=== PATIENT | male | born 1970 | race Caucasian/White ===

== ENCOUNTER 2023-07-16 00:33 | Emergency (ER) | payer MEDICAID, OTHER, SELFPAY ==
--- NOTE | ~2023-07-16 | CT_ITS ---
EXAMINATION: CT ABDOMEN AND PELVIS WITHOUT CONTRAST CLINICAL INFORMATION: Bilateral flank pain. COMPARISON: None available. TECHNIQUE: Multidetector volumetric imaging was performed from the superior aspect of the liver through the pubic symphysis. Sagittal and coronal reformatted images were obtained on the technologist's workstation. This CT examination was performed using dose optimization techniques as appropriate, variously including the following: *Automated exposure control *Adjustment of mA and/or kV according to patient size (this includes techniques or standardized protocols for targeted exams where dose is matched to indication/reason for exam; i.e. extremities or head) *Use of iterative reconstruction technique DLP: 513 mGy-cm FINDINGS: LUNG BASES: There is minimal scarring at both lung bases. LIVER, GALLBLADDER, AND BILIARY TREE: There is a 1.5 cm hypodensity lateral right lobe the liver. There is no intrahepatic biliary duct dilatation. The gallbladder is unremarkable with no evidence of radiopaque gallstones, gallbladder wall thickening, or obvious pericholecystic inflammatory changes. PANCREAS: Unremarkable. SPLEEN: Unremarkable. ADRENAL GLANDS: Unremarkable. KIDNEYS AND URETERS: The kidneys are normal in size, shape, and attenuation. There are multiple bilateral renal calculi measuring 1 to 3 mm. There is mild right hydronephrosis and hydroureter extending into the pelvis to the level of a 3 to 3.5 mm distal right ureteric calculus. There is no left hydronephrosis. BLADDER: Unremarkable. GASTROINTESTINAL TRACT: The small and large bowel are unremarkable. The appendix is unremarkable. ABDOMINAL WALL: No significant hernia is appreciated. LYMPH NODES: Normal. VASCULAR: Unremarkable. PELVIC VISCERA: Unremarkable. OSSEOUS STRUCTURES: There is grade 1 anterolisthesis L5 over S1 with bilateral L5 spondylolysis. CT/CT abdomen pelvis wo IV con IMPRESSION: Bilateral renal calculi. Mild right hydronephrosis and hydroureter extending into the pelvis to the level of a 3 to 3.5 mm distal right ureteric calculus. Grade 1 anterolisthesis L5 over S1 with bilateral L5 spondylolysis. Fleischner guidelines were followed.
[2023-07-16 00:45] VITALS: BP 137/80; BP 152/90; PULSE 106; PULSE 50; RESP 18; TEMP 36.4; O2SAT 97; O2SAT 98; BMI 27.5
--- NOTE | 2023-07-16 01:01 | ED_ITS ---
HPI - Male Genitourinary General Chief complaint: Urogenital-Male Stated complaint: groin/back pain Time Seen by Provider: 07/16/23 00:54 Source: patient Mode of arrival: ambulatory Limitations: no limitations History of Present Illness HPI Narrative: Patient comes to the emergency room complaining of suprapubic pressure radiating towards the scrotum. Patient states that the actually testes or scrotum do not hurt. Patient states that his symptoms started approximately 1 hour prior to arrival with rapid onset. Patient complaining of bilateral lower back pain radiating towards the abdomen and scrotum. Patient states that he has had trouble urinating for the last hour. Denies any previous issues with urination. Patient denies any recent problems with dysuria or hematuria. Related Data Previous Rx's Medication Instructions Recorded ketorolac 10 mg tablet 10 mg PO TID PRN pain #10 tabs 07/16/23 ondansetron HCl 4 mg tablet 4 mg PO Q6H PRN nausea and 07/16/23 vomiting #14 tabs tamsulosin 0.4 mg capsule 0.4 mg PO BEDTIME #14 caps 07/16/23 Allergies Allergy/AdvReac Type Severity Reaction Status Date / Time No Known Allergies Allergy Verified 07/16/23 00:49 Review of Systems 2 Review of Systems: Constitutional : No Weight loss, No Fever, No Chills, No Night Sweats, No Fatigue, No Malaise ENT/Mouth : No Hearing loss, No Ear Pain, No Nasal Congestion, No Sinus Pain, No Hoarseness, No sore throat, No Rhinorrhea, No Swallowing Difficulty Eyes: No Eye Pain, No Swelling, No Redness, No Foreign Body, No Discharge, No Vision Changes Cardiovascular : No Chest Pain, No SOB, No Dyspnea on Exertion, No Orthopnea, No Edema, No Palpitations Respiratory : No Cough, No Sputum, No Wheezing, No Smoke Exposure, No Dyspnea Gastrointestinal : No Nausea, No Vomiting, No Diarrhea, No Constipation, No abdominal Pain, No Hematochezia, No Melena Genitourinary : Patient denies Dysuria, No Urinary Frequency, No Hematuria, No Urinary Incontinence, No Urgency, complaining of bilateral flank pain, patient states it feels a lot of pressure and discomfort to urinate Musculoskeletal : No joint pain, No Myalgias, No Joint Swelling Skin : No Skin Lesions, No rash Neuro : No Weakness, No Numbness, No Paresthesias, No Loss of Consciousness, No Dizziness, No Headache Psych : No Anxiety/Panic, No Depression, No SI/HI/AH/VH, No Social Issues, Heme/Lymph: No Bruising, No Bleeding,No Lymphadenopathy Endocrine : No Polyuria, No Polydipsia, No Temperature Intolerance PMF Social History Social History Smoked in Last 30 Days: No Use of substances other than those prescribed or required for medical reasons: Yes Substance Use Type: Marijuana Advance Directives: No Advance Directives Information Provided: Yes Physical Exam 2 Vital Signs: Vital Signs: Last Vital Signs Temp 97.7 F 07/16/23 02:09 Pulse 51 07/16/23 02:09 Resp 16 07/16/23 02:09 BP 111/61 07/16/23 02:09 Pulse Ox 94 07/16/23 02:09 O2 Del Method Room Air 07/16/23 02:09 BMI result Body Mass Index 27.5 Const: Other: Appearance: Alert. Oriented X3. Looks uncomfortable Eyes: Pupils equal, round and reactive to light. ENT: Pharynx normal. Neck: Normal inspection. Neck supple. No lymph nodes noted. No crepitus CVS: Normal heart rate and rhythm. Pulses normal. Normal S1 and S2 Respiratory: No respiratory distress. Breath sounds normal. No Wheezing. No rales Abdomen: Soft and nontender. No rigidity. No distention. : No palpable inguinal hernias, no pain to palpation over bilateral testes, no scrotal swelling or pain or discoloration Skin: Skin warm and dry. Normal skin color. Normal skin turgor. Extremities: No lower extremity edema. No Lacerations. No Rash Neuro: Oriented X 3. No motor deficit. No sensory deficit. Moving all extremities. No slurred speech. CN 2 through 12 grossly intact Psych: calm, cooperative, normal affect Course Course Course Narrative: -labs, bladder scan and CT scan pending -patient did not have any pain whatsoever in the scrotum/testicular area. Patient is radiating from the back to the suprapubic area down to the scrotum -patient getting IM Toradol and p.o. tamsulosin and Zofran Medications Administered Discontinued Medications Generic Name Dose Route Start Last Admin Trade Name Freq PRN Reason Stop Dose Admin Ketorolac Tromethamine 60 mg 07/16/23 01:11 07/16/23 01:52 Ketorolac Tromethamine 60 Mg/2 Ml Vial IM 07/16/23 01:12 60 mg ONCE ONE Administration Ondansetron HCl 4 mg 07/16/23 01:11 07/16/23 01:51 Ondansetron Odt 4 Mg Tab.Rapdis TRANSLINGU 07/16/23 01:12 4 mg ONCE ONE Administration Tamsulosin HCl 0.4 mg 07/16/23 01:11 07/16/23 01:51 Tamsulosin Hcl 0.4 Mg Capsule PO 07/16/23 01:12 0.4 mg ONCE ONE Administration Medical Decision Making Medical Decision Making MDM Narrative: -my interpretation of CT scan of the abdomen pelvis: 3-4 mm stone at the right UVJ -patient received a dose of IM Toradol, p.o. tamsulosin, sublingual Zofran, patient feeling much better - Differential Diagnosis Differential Diagnoses: The differential diagnosis associated with the presentation includes (Renal colic, ureterolithiasis, UTI, pyelonephritis, musculoskeletal pain) Admission/Observation Consideration of admission/observation: Escalation of care including admission/observation considered (Given patient's presentation to the ED, admission was considered) Lab Data MDM Lab Attestation statement: I reviewed the patient's lab results. 07/16/23 01:24 07/16/23 01:24 Labs: Lab Results 07/16/23 Range/Units 01:24 WBC 11.9 H (4.8-10.8) X10*3/uL RBC 4.87 (4.60-5.80) X10*6/uL Hgb 15.2 (14.0-18.0) g/dl Hct 44.7 (42.0-52.0) % MCV 91.8 (80.0-98.0) fL MCH 31.2 (27.0-33.0) pg MCHC 34.0 (31.0-36.0) g/dl RDW 11.6 (11.0-16.0) % Plt Count 168 (160-400) X10*3/uL MPV 11.1 (9.4-12.4) fL Immature Gran % (Auto) 0.3 (0.0-0.4) % Neut % (Auto) 74.1 H (45-73) % Lymph % (Auto) 16.8 L (20-40) % [place] % (Auto) 7.5 (2-11) % Eos % (Auto) 0.8 (0-4) % Baso % (Auto) 0.5 (0-2) % Lymph # (Auto) 2.0 (1.2-4.9) X10*3/uL [place] # (Auto) 0.9 (0.1-1.2) X10*3/uL Eos # (Auto) 0.1 (0.0-0.4) X10*3/uL Baso # (Auto) 0.1 (0.0-0.2) X10*3/uL Abs Immat Gran (auto) 0.03 (0.00-0.03) X10*3/uL Absolute Neuts (auto) 8.8 H (2.0-8.3) x10*3/uL Absolute Nucleated RBC 0.000 (0.0-0.012) X10*3/uL Nucleated RBC % (auto) 0.0 (0.0-0.2) /100WBC Sodium 141 (135-145) mmol/L Potassium 3.7 (3.3-5.1) mmol/L Chloride 104 (96-108) mmol/L Carbon Dioxide 26 (22-29) mmol/L Anion Gap 15 (12-20) BUN 16 (9-16) mg/dL Creatinine 1.68 H (0.5-1.4) mg/dL Estim Creat Clear Calc 49.7 Estimated GFR 43 Random Glucose 141 H (60-115) mg/dL Calcium 9.7 (8.4-10.2) mg/dL Total Bilirubin 0.3 (0.0-1.0) mg/dL Direct Bilirubin 0.1 (0.0-0.5) mg/dL AST 22 (5-37) U/L ALT 16 (0-40) U/L Alkaline Phosphatase 52 (39-117) U/L Total Protein 7.1 (6.5-8.0) g/dL Albumin 4.0 (3.5-5.0) g/dL Urine Color Yellow Urine Appearance Cloudy Urine pH 5.5 (5.0-9.0) Ur Specific Varney 1.020 (1.005-1.025) Urine Protein Trace (Neg-Trace) mg/dL Urine Glucose (UA) Negative (Negative) mg/dL Urine Ketones Trace (Negative) mg/dL Urine Blood Large (3+) H (Negative) Urine Nitrite Negative (Negative) Ur Leukocyte Esterase Negative (Negative) Urine RBC 11-20 H (0-2) /HPF Urine WBC 0-5 (0-5) /HPF Ur Squamous Epith Cells 0-2 (0-2) /HPF Urine Bacteria None Seen (None Seen) Hyaline Casts 0-2 (0-2) /LPF Independent Interpretation I performed an independent interpretation of an: CT Scan Radiology Impression Discussion of test interpretation with radiology: I have reviewed the radiologist's reading. Radiologist Impression: FINDINGS: LUNG BASES: There is minimal scarring at both lung bases. LIVER, GALLBLADDER, AND BILIARY TREE: There is a 1.5 cm hypodensity lateral right lobe the liver. There is no intrahepatic biliary duct dilatation. The gallbladder is unremarkable with no evidence of radiopaque gallstones, gallbladder wall thickening, or obvious pericholecystic inflammatory changes. PANCREAS: Unremarkable. SPLEEN: Unremarkable. ADRENAL GLANDS: Unremarkable. KIDNEYS AND URETERS: The kidneys are normal in size, shape, and attenuation. There are multiple bilateral renal calculi measuring 1 to 3 mm. There is mild right hydronephrosis and hydroureter extending into the pelvis to the level of a 3 to 3.5 mm distal right ureteric calculus. There is no left hydronephrosis. BLADDER: Unremarkable. GASTROINTESTINAL TRACT: The small and large bowel are unremarkable. The appendix is unremarkable. ABDOMINAL WALL: No significant hernia is appreciated. LYMPH NODES: Normal. VASCULAR: Unremarkable. PELVIC VISCERA: Unremarkable. OSSEOUS STRUCTURES: There is grade 1 anterolisthesis L5 over S1 with bilateral L5 spondylolysis. CT/CT abdomen pelvis wo IV con IMPRESSION: Bilateral renal calculi. Mild right hydronephrosis and hydroureter extending into the pelvis to the level of a 3 to 3.5 mm distal right ureteric calculus. Grade 1 anterolisthesis L5 over S1 with bilateral L5 spondylolysis. Fleischner guidelines were followed. Independent Historian Clinical information obtained from an independent historian. History obtained from or confirmed by: Other (Nephew) Critical Care Time Critical Care Time Critical Care Time: Yes Total Critical Care Time: 60 Attestation: I have personally provided critical care time. Time includes review of lab data, radiology results, discussion with consultants, and monitoring for potential decompensation. Intervention performed as documented. Discharge Plan Discharge Clinical Impression: Ureterolithiasis Patient Disposition: Home, Self-Care Instructions: Ureteral Stones (ED) Additional Instructions: Please follow-up with your primary care physician tomorrow. If you have any worsening or new symptoms, please return to the emergency room or call 911 Prescriptions: New tamsulosin 0.4 mg capsule 0.4 mg PO BEDTIME Qty: 14 0RF ketorolac 10 mg tablet 10 mg PO TID PRN (Reason: pain) Qty: 10 0RF Rx Instructions: Do not use this medication with Aleve, ibuprofen, naproxen or any other NSAID ondansetron HCl 4 mg tablet 4 mg PO Q6H PRN (Reason: nausea and vomiting) Qty: 14 0RF Referrals: Kelsey Govea MD [Physician] - 07/23/23 Stand Alone Forms: Work/School Release
[2023-07-16 01:28] LABS: MANUAL DIFF FLAG NO
[2023-07-16 01:29] LABS: Basophils Absolute Auto 0.1 X10*3/uL (0.0-0.2); Basophils Percent Auto 0.5 % (0-2); Eosinophils Absolute Auto 0.1 X10*3/uL (0.0-0.4); Eosinophils Percent Auto 0.8 % (0-4); Hematocrit 44.7 % (42.0-52.0); Hemoglobin 15.2 g/dl (14.0-18.0); Imm Gran Abs Auto 0.03 X10*3/uL (0.00-0.03); Imm Gran Pct Auto 0.3 % (0.0-0.4); Lymphocytes Percent Auto 16.8 % (20-40); Mean Corpuscular Hemoglobin 31.2 pg (27.0-33.0); Mean Corpuscular Volume 91.8 fL (80.0-98.0); Mean Platelet Volume 11.1 fL (9.4-12.4); Monocytes Absolute Auto 0.9 X10*3/uL (0.1-1.2); Monocytes Percent Auto 7.5 % (2-11); Neutrophils Absolute Auto 8.8 x10*3/uL (2.0-8.3); Neutrophils Percent Auto 74.1 % (45-73); Platelet Count 168 X10*3/uL (160-400); Red Blood Count 4.87 X10*6/uL (4.60-5.80); Red Cell Distribution Width 11.6 % (11.0-16.0); White Blood Count 11.9 X10*3/uL (4.8-10.8)
[2023-07-16 01:31] LABS: Appearance Urine Cloudy; Color Urine Yellow; Glucose Urine UA Negative (Negative); Leukocyte Esterase Urine Negative (Negative); Nitrite Urine Negative (Negative); PH 5.5 (5.0-9.0); UMIC TRIGGER UACC YES; Urine Blood Large (3+) (Negative); Urine Ketones Trace mg/dL (Negative); Urine Protein Trace mg/dL (Neg-Trace)
[2023-07-16 01:36] LABS: Bacteria Urine None Seen (None Seen); Hyaline Casts Urine 0-2 /LPF (0-2); Squamous Epithelial Cell Urine 0-2 /HPF (0-2); WBC Urine 0-5 /HPF (0-5)
--- NOTE | 2023-07-16 01:39 | MHC.EDTECH ---
Patient came in by ambulance,changed into hospital attire, patient ambulated to bathroom with a steady gait,UACC,and a CT-NG urine sample collected and sent to lab. Patient bladder scanned post void and had no output left,Provider and RN aware. Labs were obtained and sent to lab.Call connolly in reach
[2023-07-16 01:45] LABS: Alanine Aminotransferase 16 U/L (0-40); Alkaline Phosphatase 52 U/L (39-117); Anion Gap 15 (12-20); Aspartate Amino Transferase 22 U/L (5-37); Bilirubin Direct 0.1 mg/dL (0.0-0.5); Bilirubin Total 0.3 mg/dL (0.0-1.0); Blood Urea Nitrogen 16 mg/dL (9-16); Calcium 9.7 mg/dL (8.4-10.2); Carbon Dioxide 26 mmol/L (22-29); Chloride 104 mmol/L (96-108); Creatinine Clr Calc Pharmacy 49.7; Estimated Glomerular Filt Rate 43; Glucose Random 141 mg/dL (60-115); Potassium 3.7 mmol/L (3.3-5.1); Sodium 141 mmol/L (135-145); Total Protein 7.1 g/dL (6.5-8.0)
[2023-07-16] MEDS: Tamsulosin HCL 0.4 MG CAPSULE PO (01:51)
[2023-07-16] MEDS: Ondansetron ODT 4 MG TAB.RAPDIS TRANSLINGU (01:51)
[2023-07-16] MEDS: Ketorolac Tromethamine 60 MG/2 ML VIAL IM (01:52)
[2023-07-16 02:09] VITALS: BP 111/61; PULSE 51; RESP 16; TEMP 36.5; O2SAT 94
--- NOTE | 2023-07-16 02:16 | MHC.EDTECH ---
Hourly rounds and vitals completed,patient is resting comfortably at this time and call connolly within reach
--- NOTE | 2023-07-16 02:25 | PC.NURSE ---
Pt ca&ox4, no signs of distress. Pt medicated per mar. Plan of care ongoing.
[2023-07-16 11:29] LABS: CT PCR NOT DETECTED (Not Detect.); NG PCR NOT DETECTED (Not Detect.)
== END 2023-07-16 03:47 | disposition home or self-care (01) ==
PROVIDERS: Emergency Provider Emergency Medicine
DX: N13.2 Hydronephrosis with renal and ureteral calculous obstruction (principal); R10.2 Pelvic and perineal pain
CPT/HCPCS: 0353U; 36415; 51798; 74176; 80048; 80076; 81001; 85025; 96372; 99284; 99285; J1885